=== PATIENT | female | born 1975 | race Caucasian/White ===

== ENCOUNTER 2016-11-23 13:55 | Emergency (ER) | payer MEDICAID, OTHER ==
[~2016-11-23] VITALS: Ht 165.1 cm; Wt 79.0 kg
[~2016-11-23 13:55] MED LIST: FLUO10TA PO; [UNRECOGNIZED DRUG - REMARK]
[2016-11-23 13:58] VITALS: Ht 165.1 cm; Wt 79.0 kg
[2016-11-23] MEDS ORDERED: KETOROLAC 30 MG INJ IM STA (15:53)
[2016-11-23] MEDS ORDERED: ACETAMINOPHEN 325 MG TAB PO ONE (16:00)
[2016-11-23] MEDS ORDERED: NAPR-260 PO (16:47)
[2016-11-23] MEDS ORDERED: CYCL-319 PO (16:47)
[2016-11-23 17:05] VITALS: BP 112/61; PULSE 71; RESP 19; TEMP 98.3
--- NOTE | 2016-11-25 14:26 | ERD ---
ER Documentation Chief Complaint Date/Time DATE: 11/25/16 TIME: 14:24 Chief Complaint Patient states neck and back x 3 weeks HPI This patient is a 41-year-old female presenting to the neck and upper back pain intermittently for the past 3 weeks. The patient has had chronic neck pain for the past year. This is an acute exacerbation. She states she woke up with the pain approximately 3 weeks ago but the pain is worsened since then. She describes it as tightness with radiation down her upper back bilaterally. She denies trauma, twisting, falls, or other symptoms currently. She has been taking ibuprofen at home with no relief of symptoms. ROS All systems reviewed and are negative except as per history of present illness. Medications Home Meds Active Scripts Cyclobenzaprine Hcl* (Cyclobenzaprine Hcl*) 10 Mg Tablet, 10 MG PO TID, #15 TAB Prov:EDGARD MUKHERJEE PA-C 11/23/16 Naproxen* (Naprosyn*) 500 Mg Tablet, 500 MG PO BID Y for PAIN AND/OR INFLAMMATION, #30 TAB Prov:EDGARD MUKHERJEE PA-C 11/23/16 Reported Medications [Cholesterol Med. Name Unknown] No Conflict Check 05/09/12 Fluoxetine Hcl* (Prozac*) 10 Mg Tablet, 10 MG PO DAILY 05/09/12 Allergies Allergies: Coded Allergies: No Known Allergy (Unverified , 11/23/16) PMhx/Soc Medical and Surgical Hx: pt denies Surgical Hx History of Surgery: No Anesthesia Reaction: No Hx Neurological Disorder: No Hx Respiratory Disorders: No Hx Cardiac Disorders: Yes (HIGH CHOLESTEROL) Hx Psychiatric Problems: Yes (DEPRESSION, ANXIETY) Hx Miscellaneous Medical Probl: No Hx Alcohol Use: No Hx Substance Use: No Hx Tobacco Use: No Smoking Status: Never smoker Physical Exam Vitals Vital Signs Date Time Temp Pulse Resp B/P Pulse Ox O2 Delivery O2 Flow Rate FiO2 11/23/16 17:05 98.3 71 19 112/61 100 Room Air 11/23/16 13:58 98.8 89 20 102/56 92 Physical Exam Const: Nontoxic, well-appearing female in no acute distress. Head: Atraumatic Eyes: Normal Conjunctiva ENT: Normal External Ears, Nose and Mouth. Neck: Full range of motion..~ No meningismus. No nuchal rigidity. No tenderness to palpation of the paraspinal muscles of the C-spine. Skin: No petechiae or rashes Back: No midline or flank tenderness Ext: No cyanosis, or edema Neur: Awake and alert Psych: Normal Mood and Affect Results 24 hrs Current Medications Medications (Trade) Dose Ordered Sig/Clark Route PRN Reason Start Time Stop Time Status Last Admin Dose Admin Ketorolac Tromethamine (Toradol) 30 mg ONCE STAT IM 11/23/16 15:53 11/23/16 15:54 DC 11/23/16 16:02 Acetaminophen (Tylenol Tab) 650 mg ONCE ONCE PO 11/23/16 16:00 11/23/16 16:01 DC 11/23/16 16:01 Procedures/MDM 41-year-old female presents to the emergency department with complaints of acute exacerbation of chronic neck pain. I have low suspicion for meningitis or other emergent pathology. The patient was given IM Toradol and p.o. Tylenol in the department and is feeling improved prior to discharge. She was stable for discharge with a prescription for naproxen and Flexeril. She agreed with the discharge plan a diagnosis. She is to return immediately for new or worsening symptoms. Close follow-up with primary care physician was advised. Departure Diagnosis: Primary Impression: Neck pain Condition: Fair Patient Instructions: Neck Pain, No Trauma Additional Instructions: Follow up with your PCP within the next 1-3 days for a repeat evaluation. If you require a referral to a specialist, your Primary Care Provider may be able to provide this for you. In most patient cases, a referral is not required. If you have further questions regarding this matter, please ask your Primary Care Provider. Return the the emergency department immediately if symptoms worsen or change. If you have any questions regarding medications, ask your pharmacist or us before you leave. If any adverse reactions, occur while taking your medications, discontinue the treatment and return to the emergency department immediately. If any new or worsening symptoms, uncontrolled fevers, or other unexplained symptoms occur, return to the emergency department immediately. Take your medications as directed, and complete the entire course of treatment. EDGARD MUKHERJEE PA-C Nov 25, 2016 14:26
== END 2016-11-23 17:07 | disposition home or self-care (01) ==
LOC: FTE 13:55
DX: M54.2 Cervicalgia (principal)
CPT/HCPCS: 96372; J1885; Z7502; Z7610

== ENCOUNTER 2017-04-13 11:41 | Emergency (ER) | END 2017-04-13 12:58 | disposition home or self-care (01) ==

== ENCOUNTER 2017-05-04 09:22 | Emergency (ER) | END 2017-05-04 11:44 | disposition home or self-care (01) ==

== ENCOUNTER 2018-11-20 11:39 | Emergency (ER) | payer MEDICAID, OTHER ==
[~2018-11-20] VITALS: Ht 162.6 cm; Wt 78.4 kg
[~2018-11-20 11:39] MED LIST changes: +BENZ200C68 PO; +CYCL10TA7 PO; +D-ME473S2 PO; +FIORICET PO; +IBUP800T48 PO; +MED4DP PO; +NAPR-985 PO
[2018-11-20 11:46] VITALS: BP 112/59; PULSE 81; RESP 18; Ht 162.6 cm; Wt 78.4 kg
== END 2018-11-20 15:19 | disposition home or self-care (01) ==
LOC: FTE 11:39
DX: R10.2 Pelvic and perineal pain (principal)
CPT/HCPCS: 36415; 76830; 76856; 80053; 81001; 83690; 84703; 85025; Z7502